=== PATIENT | female | born 1980 ===

== ENCOUNTER 2018-04-05 18:58 | Emergency (ER) | payer MEDICAID ==
[2018-04-05] MEDS ORDERED: LORazepam 2 MG/ML Syringe IVPUSH ONE (19:05)
[2018-04-05] MEDS ORDERED: Sodium Chloride 0.9% 10 ML Syringe FLUSH PRN (19:05)
[2018-04-05] MEDS ORDERED: Metoclopramide 10 MG/2 ML SDV IVPUSH ONE (19:05)
--- NOTE | 2018-04-05 19:07 | EDM.PDOCBH ---
ED HPI GENERAL MEDICAL PROBLEM - General Chief Complaint: Gastrointestinal Problem Stated Complaint: EMESIS Time Seen by Provider: 04/05/18 19:06 Source of Information: Reports: Patient, Police, RN, RN Notes Reviewed History Limitations: Reports: Respiratory Distress - History of Present Illness INITIAL COMMENTS - FREE TEXT/NARRATIVE: [facility] after a traffic stop and the patient was placed under arrest. Patient became very anxious and agitated, retching and dry heaving continuously. Producing white powdery sputum. Patient denies ingestion of any drugs or alcohol. Onset: Today, Sudden ED ROS GENERAL - Review of Systems Review Of Systems: ROS reveals no pertinent complaints other than HPI. ED EXAM, BEHAVIORAL HEALTH - Physical Exam Exam: See Below Exam Limited By: Uncooperative General Appearance: Alert, WD/WN, Moderate Distress Eye Exam: Bilateral Eye: EOMI, Normal Inspection Ears: Normal External Exam, Hearing Grossly Normal Nose: Normal Inspection Throat/Mouth: Normal Inspection, Normal Voice, No Airway Compromise Head: Atraumatic, Normocephalic Neck: Normal Inspection, Supple, Non-Tender, Full Range of Motion Respiratory/Chest: No Respiratory Distress, Lungs Clear, Normal Breath Sounds, No Accessory Muscle Use, Chest Non-Tender, Other (hyperventilating upon arrival , better after medications) Cardiovascular: Normal Peripheral Pulses, Tachycardia GI/Abdominal: Soft, No Distention, Tender (generalized tenderness), Abnormal Bowel Sounds (hyperactive) (Female) Exam: Deferred Rectal (Female) Exam: Deferred Back Exam: Normal Inspection, Full Range of Motion Extremities: Normal Inspection, Normal Range of Motion, Non-Tender, No Pedal Edema, Normal Capillary Refill Neurological: Alert, Opens Eyes to Commands Psychiatric: Alert, Restless, Tearful, Agitated, Poor Eye Contact Skin Exam: Warm, Dry, Intact, Normal color, No rash EKG INTERPRETATION EKG Date: 04/05/18 Time: 19:36 Rhythm: Other (Sinus tachycardia) Rate (Beats/Min): 131 [place]: Normal P-Wave: Present QRS: Normal ST-T: Normal QT: Normal Comparison: NA - No Prior EKG COURSE, BEHAVIORAL HEALTH COMP - Course Vital Signs: Last Vital Signs Temp 97.2 F 04/05/18 19:05 Pulse 152 H 04/05/18 19:05 Resp 22 H 04/05/18 19:05 BP 131/87 04/05/18 19:05 Pulse Ox 96 04/05/18 19:05 Orders, Labs, Meds: Active Orders 24 hr Category Date Time Status EKG Documentation Completion [RC] STAT Care 04/05/18 19:05 Active Peripheral IV Care [RC] . DIRECTED Care 04/05/18 19:06 Active DRUG SCREEN URINE BIORAD [URCHEM] Stat Lab 04/05/18 19:56 Ordered HCG QUALITATIVE,URINE [URCHEM] Stat Lab 04/05/18 19:56 Ordered UA W/MICROSCOPIC [URIN] Stat Lab 04/05/18 19:56 Ordered Sodium Chloride 0.9% [Saline Flush] Med 04/05/18 19:05 Active 10 ml FLUSH ASDIRECTED PRN Peripheral IV Insertion Adult [OM.PC] Stat Oth 04/05/18 19:05 Ordered Medication Orders Sodium Chloride (Saline Flush) 10 ml FLUSH ASDIRECTED PRN PRN Reason: Keep Vein Open Last Admin: 04/05/18 19:11 Dose: 10 ml Laboratory Tests 04/05/18 04/05/18 04/05/18 Range/Units 19:04 19:04 19:56 WBC 11.9 H (5.0-10.0) 10^3/uL RBC 5.00 (4.2-5.4) 10^6/uL Hgb 14.5 (12.0-16.0) g/dL Hct 42.7 (37.0-47.0) % MCV 85.4 (80-100) fL MCH 29.0 (27.0-34.0) pg MCHC 34.0 (33.0-35.0) g/dL Plt Count 351 (150-450) 10^3/uL Neut % (Auto) 62.6 (42.2-75.2) % Lymph % (Auto) 29.3 (20.5-50.1) % [place] % (Auto) 6.1 (2-8) % Eos % (Auto) 1.7 (1.0-3.0) % Baso % (Auto) 0.3 (0.0-1.0) % Sodium 135 (135-145) mmol/L Potassium 3.2 L (3.6-5.0) mmol/L Chloride 99 L (101-111) mmol/L Carbon Dioxide 26.0 (21.0-31.0) mmol/L Anion Gap 13.2 BUN 16 (7-18) mg/dL Creatinine 0.8 (0.6-1.3) mg/dL Est Cr Clr Drug Dosing 84.76 mL/min Estimated GFR (MDRD) > 60 BUN/Creatinine Ratio 20.00 Glucose 140 H (74-105) mg/dL Calcium 8.5 (8.4-10.2) mg/dl Total Bilirubin 0.8 (0.2-1.0) mg/dL AST 62 H (10-42) IU/L ALT 114 H (10-60) IU/L Alkaline Phosphatase 104 (42-121) IU/L Total Protein 8.1 (6.7-8.2) g/dl Albumin 4.2 (3.2-5.5) g/dl Globulin 3.9 Albumin/Globulin Ratio 1.08 Urine Color Yellow (YELLOW) Urine Appearance Slightly cloudy (CLEAR) Urine pH 7.0 (5.0-9.0) Ur Specific [place] 1.015 (1.005-1.030) Urine Protein Negative (NEGATIVE) Urine Glucose (UA) Negative (NEGATIVE) Urine Ketones Negative (NEGATIVE) Urine Occult Blood Negative (NEGATIVE) Urine Nitrite Negative (NEGATIVE) Urine Bilirubin Negative (NEGATIVE) Urine Urobilinogen 0.2 (0.2-1.0) mg/dL Ur Leukocyte Esterase Trace H (NEGATIVE) Urine RBC 0-5 /HPF Urine WBC 0-5 (0-5/HPF) /HPF Ur Epithelial Cells Moderate H /HPF Urine Bacteria Rare (0-FEW/HPF) /HPF Urine Mucus Moderate H /LPF Urine HCG, Qual Urine Opiates Screen (NEGATIVE) Ur Oxycodone Screen (NEGATIVE) Urine Methadone Screen (NEGATIVE) Ur Barbiturates Screen (NEGATIVE) U Tricyclic Antidepress (NEGATIVE) Ur Phencyclidine Scrn (NEGATIVE) Ur Amphetamine Screen (NEGATIVE) U Methamphetamines Scrn (NEGATIVE) Urine MDMA Screen (NEGATIVE) U Benzodiazepines Scrn (NEGATIVE) Urine Cocaine Screen (NEGATIVE) U Marijuana (THC) Screen (NEGATIVE) Ethyl Alcohol < 5 mg/dL 04/05/18 04/05/18 Range/Units 19:56 19:56 WBC (5.0-10.0) 10^3/uL RBC (4.2-5.4) 10^6/uL Hgb (12.0-16.0) g/dL Hct (37.0-47.0) % MCV (80-100) fL MCH (27.0-34.0) pg MCHC (33.0-35.0) g/dL Plt Count (150-450) 10^3/uL Neut % (Auto) (42.2-75.2) % Lymph % (Auto) (20.5-50.1) % [place] % (Auto) (2-8) % Eos % (Auto) (1.0-3.0) % Baso % (Auto) (0.0-1.0) % Sodium (135-145) mmol/L Potassium (3.6-5.0) mmol/L Chloride (101-111) mmol/L Carbon Dioxide (21.0-31.0) mmol/L Anion Gap BUN (7-18) mg/dL Creatinine (0.6-1.3) mg/dL Est Cr Clr Drug Dosing mL/min Estimated GFR (MDRD) BUN/Creatinine Ratio Glucose (74-105) mg/dL Calcium (8.4-10.2) mg/dl Total Bilirubin (0.2-1.0) mg/dL AST (10-42) IU/L ALT (10-60) IU/L Alkaline Phosphatase (42-121) IU/L Total Protein (6.7-8.2) g/dl Albumin (3.2-5.5) g/dl Globulin Albumin/Globulin Ratio Urine Color (YELLOW) Urine Appearance (CLEAR) Urine pH (5.0-9.0) Ur Specific [place] (1.005-1.030) Urine Protein (NEGATIVE) Urine Glucose (UA) (NEGATIVE) Urine Ketones (NEGATIVE) Urine Occult Blood (NEGATIVE) Urine Nitrite (NEGATIVE) Urine Bilirubin (NEGATIVE) Urine Urobilinogen (0.2-1.0) mg/dL Ur Leukocyte Esterase (NEGATIVE) Urine RBC /HPF Urine WBC (0-5/HPF) /HPF Ur Epithelial Cells /HPF Urine Bacteria (0-FEW/HPF) /HPF Urine Mucus /LPF Urine HCG, Qual Negative Urine Opiates Screen Negative (NEGATIVE) Ur Oxycodone Screen Negative (NEGATIVE) Urine Methadone Screen Negative (NEGATIVE) Ur Barbiturates Screen Negative (NEGATIVE) U Tricyclic Antidepress Negative (NEGATIVE) Ur Phencyclidine Scrn Negative (NEGATIVE) Ur Amphetamine Screen Positive H (NEGATIVE) U Methamphetamines Scrn Positive H (NEGATIVE) Urine MDMA Screen Negative (NEGATIVE) U Benzodiazepines Scrn Negative (NEGATIVE) Urine Cocaine Screen Negative (NEGATIVE) U Marijuana (THC) Screen Positive H (NEGATIVE) Ethyl Alcohol mg/dL Medications Generic Name Dose Route Start Last Admin Trade Name Freq PRN Reason Stop Dose Admin Sodium Chloride 10 ml 04/05/18 19:05 04/05/18 19:11 Saline Flush FLUSH 10 ml ASDIRECTED PRN Administration Keep Vein Open Discontinued Medications Generic Name Dose Route Start Last Admin Trade Name Freq PRN Reason Stop Dose Admin Sodium Chloride 1,000 mls @ 999 mls/hr 04/05/18 19:09 04/05/18 19:04 Normal Saline IV 04/05/18 20:09 999 mls/hr .BOLUS ONE Administration Iopamidol 100 ml 04/05/18 21:08 04/05/18 21:13 Isovue-300 (61%) IVPUSH 04/05/18 21:09 100 ml ONETIME ONE Administration Lorazepam 2 mg 04/05/18 19:05 04/05/18 19:10 Ativan IVPUSH 04/05/18 19:06 2 mg ONETIME ONE Administration Metoclopramide HCl 10 mg 04/05/18 19:05 04/05/18 19:09 Reglan IVPUSH 04/05/18 19:06 10 mg ONETIME ONE Administration Ondansetron HCl 4 mg 04/05/18 19:44 04/05/18 19:48 Zofran IV 04/05/18 19:45 4 mg ONETIME ONE Administration Re-Assessment/Re-Exam: CT Abdomen/Pelvis: Air in urinary bladder, most likely from recent [place] catheter placement. Alternative considerations include infection and fistula with bowel. No other acute findings See Rad report Medical Clearance: 04/05/18 21:09 Patient is medically stable at this time to be discharged with Law Enforcement. Departure - Departure Time of Disposition: 20:59 Disposition: Home, Self-Care 01 Condition: Fair Clinical Impression: Drug abuse Nausea & vomiting Qualifiers: Vomiting type: unspecified Vomiting Intractability: non-intractable Qualified Code(s): R11.2 - Nausea with vomiting, unspecified - Discharge Information *PRESCRIPTION DRUG MONITORING PROGRAM REVIEWED*: Yes *COPY OF PRESCRIPTION DRUG MONITORING REPORT IN PATIENT PETER: No Instructions: Substance Use Disorder, Nausea, Adult, [id number] Forms: ED Department Discharge Additional Instructions: Patient is medically stable at this time to be discharged with Law Enforcement - My Orders Last 24 Hours: My Active Orders 04/05/18 19:05 EKG Documentation Completion [RC] STAT Sodium Chloride 0.9% [Saline Flush] 10 ml FLUSH ASDIRECTED PRN Peripheral IV Insertion Adult [OM.PC] Stat 04/05/18 19:06 Peripheral IV Care [RC] . DIRECTED 04/05/18 19:56 DRUG SCREEN URINE BIORAD [URCHEM] Stat HCG QUALITATIVE,URINE [URCHEM] Stat UA W/MICROSCOPIC [URIN] Stat - Assessment/Plan Last 24 Hours: My Active Orders 04/05/18 19:05 EKG Documentation Completion [RC] STAT Sodium Chloride 0.9% [Saline Flush] 10 ml FLUSH ASDIRECTED PRN Peripheral IV Insertion Adult [OM.PC] Stat 04/05/18 19:06 Peripheral IV Care [RC] . DIRECTED 04/05/18 19:56 DRUG SCREEN URINE BIORAD [URCHEM] Stat HCG QUALITATIVE,URINE [URCHEM] Stat UA W/MICROSCOPIC [URIN] Stat
[2018-04-05] MEDS ORDERED: Sodium Chloride 0.9% 1,000 ML IV ONE (19:09)
[2018-04-05 19:28] LABS: ANION GAP 13.2; CHLORIDE,CL 99 mmol/L (101-111); SODIUM,NA 135 mmol/L (135-145)
[2018-04-05] MEDS ORDERED: Ondansetron 4 MG/2 ML SDV IV ONE (19:44)
[2018-04-05] MEDS ORDERED: Iopamidol 612 MG/ML 100 ML Bottle IVPUSH ONE (21:08)
--- NOTE | 2018-04-06 17:38 | EKG ---
04/05/2018 - CHELSI JIMENES - TIME: 07:34 p.m. FINDINGS: Sinus tachycardia at 131. Consider right ventricular hypertrophy. Borderline T-wave abnormalities. [facility] /[id number]
== END 2018-04-05 21:15 | disposition home or self-care (01) ==
LOC: DL.ED 18:58
DX: R11.2 Nausea with vomiting, unspecified (principal); F19.10 Other psychoactive substance abuse, uncomplicated
CPT/HCPCS: 36415; 74177; 80053; 80305; 81001; 81025; 85025; 93005; 96361; 96374; 96375; 99284; G0480; J2060; J2405; J2765; J7030; J7050; Q9967

== ENCOUNTER 2024-08-10 14:49 | Emergency (ER) | payer MEDICAID, OTHER ==
[2024-08-10 17:59] LABS: BASOPHILS PERCENT AUTO 0.1 % (0.0-1.0); EOSINOPHILS PERCENT AUTO 1.4 % (1.0-3.0); HEMATOCRIT 43.3 % (37.0-47.0); LYMPHOCYTES PERCENT AUTO 20.7 % (20.5-50.1); MEAN CORPUSCULAR HEMOGLOBIN 28.8 pg (27.0-34.0); MEAN CORPUSCULAR HGB CONC 32.3 g/dL (33.0-35.0); MEAN CORPUSCULAR VOLUME 89.1 fL (80-100); NEUTROPHILS PERCENT AUTO 72.8 % (42.2-75.2); PLATELET COUNT,PLT 294 10^3/uL (150-450); RED BLOOD CELL COUNT 4.86 10^6/uL (4.2-5.4); WHITE BLOOD CELL COUNT,WBC 8.6 10^3/uL (5.0-10.0)
[2024-08-10 18:10] LABS: APPEARANCE,URINE CLEAR (CLEAR); BILIRUBIN,URINE NEGATIVE (NEGATIVE); COLOR,URINE YELLOW (YELLOW); GLUCOSE,URINE NEGATIVE (NEGATIVE); KETONES,URINE NEGATIVE (NEGATIVE); LEUKOCYTE ESTERASE,URINE NEGATIVE (NEGATIVE); NITRITE,URINE NEGATIVE (NEGATIVE); OCCULT BLOOD,URINE MODERATE (NEGATIVE); PROTEIN,URINE NEGATIVE (NEGATIVE); UROBILINOGEN,URINE 0.2 mg/dL (0.2-1.0)
[2024-08-10 18:24] LABS: A/G RATIO 0.9; ALANINE AMINOTRANSFERASE,ALT 24 U/L (14-59); ALBUMIN 3.6 g/dL (3.4-5.0); ALKALINE PHOSPHATASE 104 U/L (46-116); ANION GAP 10.9 mEq/L (7-13); ASPARTATE AMNIOTRANSFERASE,AST 12 U/L (15-37); BILIRUBIN TOTAL 0.2 mg/dL (0.2-1.0); BLOOD UREA NITROGEN,BUN 15 mg/dL (7-18); BUN/CREATININE RATIO 20.5 (No establ ref range); CALCIUM 8.6 mg/dL (8.5-10.1); CARBON DIOXIDE,CO2 31 mmol/L (21-32); CHLORIDE,CL 107 mmol/L (98-107); CREATININE 0.73 mg/dL (0.55-1.02); EST CRCL DRUG DOSING (CG) 89.42 mL/min; GLUCOSE RANDOM 86 mg/dL (70-99); LIPASE 21 U/L (16-77); POTASSIUM,K 3.9 mmol/L (3.5-5.1); PROTEIN TOTAL,TP 7.4 g/dL (6.4-8.2); SODIUM,NA 145 mmol/L (136-145)
[2024-08-10 18:25] LABS: C-REACTIVE PROTEIN < 0.50 ng/dL (<=0.50); ESTIMATED GFR 106 mL/min (>=60)
[2024-08-10 18:27] LABS: LACTIC ACID 0.5 mmol/L (0.4-2.0)
[2024-08-10 18:29] LABS: INR 0.9 (0.9-1.2); PROTHROMBIN TIME 9.8 SEC (9.0-12.0); PTT,PARTIAL THROMBOPLSTIN TIME 23.5 SEC (22.0-34.0)
[2024-08-10 18:31] LABS: EPITHELIAL CELLS,URINE MODERATE /HPF (NOT SEEN)
[2024-08-10 18:32] LABS: BACTERIA,URINE FEW /HPF (0-FEW/HPF); MUCUS,URINE FEW /LPF (NOT SEEN); RBC,URINE 0-5 /HPF (0-5)
[2024-08-10 18:33] LABS: AMORPHOUS SEDIMENT,URINE MODERATE /HPF (NOT SEEN)
[2024-08-10] MEDS: cefTRIAXone 1 GM Vial IVPUSH ONE (19:17)
[2024-08-10] MEDS: Iopamidol 612 MG/ML 100 ML Bottle IVPUSH ONE (19:38)
[2024-08-10] MEDS: Ketorolac 30 MG/ML SDV IVPUSH ONE (22:04)
== END 2024-08-10 22:13 | disposition other institution (70) ==
LOC: DL.ED 14:49
DX: K52.9 Noninfective gastroenteritis and colitis, unspecified (principal); N39.0 Urinary tract infection, site not specified; E27.9 Disorder of adrenal gland, unspecified; J45.909 Unspecified asthma, uncomplicated; E66.9 Obesity, unspecified; F17.210 Nicotine dependence, cigarettes, uncomplicated; Z86.16 Personal history of COVID-19; Z90.49 Acquired absence of other specified parts of digestive tract; Z88.5 Allergy status to narcotic agent; Z88.8 Allergy status to other drugs, medicaments and biological substances; Z79.899 Other long term (current) drug therapy; Z68.41 Body mass index [BMI] 40.0-44.9, adult
CPT/HCPCS: 36415; 74177; 80053; 81001; 81025; 83605; 83690; 84145; 85025; 85610; 85730; 86140; 87040; 96374; 96375; 99284; J0696; J1885; Q9967